=== PATIENT | female | born 1955 | race American Indian/Alaskan Native ===

== ENCOUNTER 2019-07-30 00:13 | Emergency (ER) | payer OTHER ==
[2019-07-30] MEDS ORDERED: KETOROLAC 30 MG/1 ML INJ IV ONE (01:36)
--- NOTE | 2019-07-30 01:40 | Emergency Department Report ---
<GRACIE CARRIZALES - Last Filed: 07/30/19 01:38> ED Abdominal Pain HPI - General Chief Complaint: Abdominal Pain Stated Complaint: ABD PAIN,ACID REFLUX WITH BURNING Time Seen by Provider: 07/30/19 01:23 Source: patient Mode of arrival: Ambulatory Limitations: No Limitations - History of Present Illness Initial Comments: Mrs. Saini is a 63-year-old female with history of hypertension, diverticulitis pulmonary embolism who presents with abdominal pain. On she felt as if she has stomach upset. Mostly discomfort and epigastric pain. She has belching and heartburn. Pepto-Bismol did provide mild transient relief. Now she has diffuse abdominal pain most prominently in epigastric region. She is concerned for another flare of acute diverticulitis. Moderate severe pain. She drove to the emergency department in her private auto. No history of abdominal surgeries. Past surgical history includes: Lung surgery for mass resection benign, neck surgery, MD Complaint: abdominal pain -: Gradual, days(s) (3) Location: diffuse, epigastric Migration to: no migration Severity: moderate Severity scale (0 -10): 7 Quality: cramping, aching Consistency: constant Improves With: medication (Pepto-Bismol) Worsens With: nothing Context: other (history of diverticulitis) Associated Symptoms: denies other symptoms (belching heartburn) - Related Data Home Medications Medication Instructions Recorded Confirmed Last Taken Lisinopril/Hydrochlorothiazide 1 tab PO QDAY 10/30/13 10/30/13 10/30/13 09:00 [Zestoretic 10-12.5 mg] Previous Rx's Medication Instructions Recorded Last Taken Type Warfarin [Coumadin] 5 mg PO QDAY #30 tablet 11/06/13 Unknown Rx diphenhydrAMINE [Benadryl] 25 mg PO Q6HR PRN #10 capsule 11/06/13 Unknown Rx Acetaminophen/Codeine [Tylenol 1 tab PO Q6H PRN #12 tab 07/30/19 Unknown Rx /Codeine # 3 tab] Apixaban [Eliquis starter pack] 5 mg PO BID #74 tab.ds.pk 07/30/19 Unknown Rx Famotidine [Pepcid] 20 mg PO BID #60 tablet 07/30/19 Unknown Rx Allergies Allergy/AdvReac Type Severity Reaction Status Date / Time No Known Allergies Allergy Verified 10/30/13 22:32 ED Review of Systems Comment: All other systems reviewed and negative Constitutional: denies: fever, malaise Cardiovascular: denies: chest pain Gastrointestinal: abdominal pain. denies: nausea, vomiting, diarrhea, constipation Musculoskeletal: denies: back pain ED Past Medical Hx - Past Medical History Previous Medical History?: Yes Hx Hypertension: Yes Hx Congestive Heart Failure: No Hx Diabetes: No Hx GERD: Yes Hx Asthma: No Hx COPD: No Additional medical history: Thyroid disease, PE, - Surgical History Past Surgical History?: Yes Additional Surgical History: neck surgery. back surgery. lap surgery for scar tissue - Family History Family history: hypertension - Social History Smoking Status: Former Smoker Substance Use Type: None - Medications Home Medications: Home Medications Medication Instructions Recorded Confirmed Last Taken Type Lisinopril/Hydrochlorothiazide 1 tab PO QDAY 10/30/13 10/30/13 10/30/13 09:00 History [Zestoretic 10-12.5 mg] Warfarin [Coumadin] 5 mg PO QDAY #30 tablet 11/06/13 Unknown Rx diphenhydrAMINE [Benadryl] 25 mg PO Q6HR PRN #10 capsule 11/06/13 Unknown Rx Acetaminophen/Codeine [Tylenol 1 tab PO Q6H PRN #12 tab 07/30/19 Unknown Rx /Codeine # 3 tab] Apixaban [Eliquis starter pack] 5 mg PO BID #74 tab.ds.pk 07/30/19 Unknown Rx Famotidine [Pepcid] 20 mg PO BID #60 tablet 07/30/19 Unknown Rx ED Physical Exam - General Limitations: No Limitations General appearance: alert, in no apparent distress - Head Head exam: Present: atraumatic, normocephalic - Eye Eye exam: Present: normal appearance - ENT ENT exam: Present: mucous membranes moist - Neck Neck exam: Present: normal inspection, full ROM - Respiratory Respiratory exam: Present: normal lung sounds bilaterally. Absent: respiratory distress, wheezes, rales, rhonchi - Cardiovascular Cardiovascular Exam: Present: regular rate, normal rhythm, normal heart sounds. Absent: systolic murmur, diastolic murmur, rubs, gallop - GI/Abdominal GI/Abdominal exam: Present: soft, normal bowel sounds. Absent: distended, tenderness, guarding, rebound - Extremities Exam Extremities exam: Present: normal inspection - Neurological Exam Neurological exam: Present: alert, oriented X3 - Psychiatric Psychiatric exam: Present: normal affect, normal mood - Skin Skin exam: Present: warm, dry, intact, normal color. Absent: rash ED Disposition Clinical Impression: Thrombus Abdominal pain Qualifiers: Abdominal location: epigastric Qualified Code(s): R10.13 - Epigastric pain Disposition: - TO HOME OR SELFCARE Condition: Stable Instructions: Abdominal Pain (ED), Deep Venous Thrombosis (ED) Prescriptions: Apixaban [Eliquis starter pack] 5 mg PO BID #74 tab.ds.pk Famotidine [Pepcid] 20 mg PO BID #60 tablet Acetaminophen/Codeine [Tylenol /Codeine # 3 tab] 1 tab PO Q6H PRN #12 tab PRN Reason: pain Referrals: [facility] [Provider Group] - 3-5 Days [facility] [Provider Group] - 3-5 Days <HILLARY FRAZIER - Last Filed: 07/30/19 05:10> ED Review of Systems ROS: Stated complaint: ABD PAIN,ACID REFLUX WITH BURNING Other details as noted in HPI ED Course Vital Signs 07/30/19 07/30/19 00:29 02:18 Temperature 98.6 F Pulse Rate 85 Respiratory 18 16 Rate Blood Pressure 145/79 O2 Sat by Pulse 94 Oximetry ED Medical Decision Making - Lab Data Result diagrams: 07/30/19 00:57 07/30/19 00:57 Labs 07/30/19 07/30/19 07/30/19 00:57 00:57 03:30 WBC 7.2 RBC 4.96 Hgb 14.3 Hct 44.1 H MCV 89 MCH 29 MCHC 33 RDW 13.4 Plt Count 210 Lymph % (Auto) 26.2 Worth % (Auto) 8.3 H Eos % (Auto) 3.6 Baso % (Auto) 1.1 Lymph # 1.9 Worth # 0.6 Eos # 0.3 Baso # 0.1 Seg Neutrophils % 60.8 Seg Neutrophils # 4.4 Sodium 139 Potassium 4.2 Chloride 99.1 Carbon Dioxide 23 Anion Gap 21 BUN 14 Creatinine 0.7 Estimated GFR > 60 BUN/Creatinine Ratio 20 Glucose 112 H Calcium 9.3 Total Bilirubin 0.30 AST 21 ALT 12 Alkaline Phosphatase 68 Total Protein 8.1 Albumin 3.9 Albumin/Globulin Ratio 0.9 Lipase > 335 H Urine Color Yellow Urine Turbidity Clear Urine pH 5.0 Ur Specific [place] 1.015 Urine Protein <15 mg/dl Urine Glucose (UA) Neg Urine Ketones Neg Urine Blood Sm Urine Nitrite Neg Urine Bilirubin Neg Urine Urobilinogen < 2.0 Ur Leukocyte Esterase Neg Urine WBC (Auto) 1.0 Urine RBC (Auto) 3.0 U Epithel Cells (Auto) 1.0 Urine Bacteria (Auto) 2+ Urine Mucus Few - Radiology Data Radiology results: report reviewed, image reviewed Referring Physician: GRACIE CARRIZALES Patient Name: JUAREZ SAINI Date of : 1955 Sex: Female Report Date: 2019-07-30 Report Status: Finalized Findings [facility] [address] [place] [address] Cat Scan Report Signed Patient: JUAREZ SAINI MR#: [id number] : 1955 Acct:[id number] Age/Sex: 63 / F ADM Date: 07/30/19 Loc: ED Attending Dr: Ordering Physician: Gracie Jett MD Date of Service: 07/30/19 Procedure(s): CT abdomen pelvis w con Accession Number(s): [id number] cc: Gracie Jett MD CT ABDOMEN AND PELVIS WITH IV CONTRAST INDICATION: Generalized abdominal pain. History of diverticulitis. TECHNIQUE: Following the administration of intravenous contrast, multiple axial CT images of the abdomen and pelvis were acquired. Sagittal and coronal reformats were obtained. All CT performed at this facility utilize dose reduction techniques including automated exposure control, iterative reconstruction and weight based dosing when appropriate to reduce patient rad iation dose to as low as reasonably achievable. COMPARISON: None FINDINGS: Limited imaging of the bilateral lung bases demonstrates no acute abnormality. Abdomen: There are several small hepatic cysts. The gallbladder, spleen, pancreas, bilateral adrenal glands and bilateral kidneys show no evidence of acute abnormality. There is a 2.7 cm cyst in the upper pole of the right kidney. There is intraluminal thrombus within the left gonadal vein extending for a length of approximately 5-6 cm. This does not appear to involve the left renal vein. There is no evidence of bowel obstruction, free fluid or free air. The appendix is visualized and appears normal. Pelvis: No free fluid is seen within the pelvis. The uterus and urinary bladder appear within normal limits. Bones and Soft Tissues: Evaluation of bony structures shows no evidence of no evidence of acute bony abnormality. Soft tissue structures show no focal soft tissue abnormality. IMPRESSION: 1. Left gonadal vein thrombosis which may be the source of patient's abdominal pain. 2. Small hepatic and right renal cyst. Signer Name: Fariba Tirado MD Signed: 07/30/2019 3:55 AM Workstation Name: [id number] Transcribed By: EB Dictated By: Fariba Tirado MD Electronically Authenticated By: Fariba Tirado MD Signed Date/Time: 07/30/19 0355 DD/ 0342 TD/TT: - Medical Decision Making Consulted [facility] vascular, Dr Ruiz, recommendation jessicais, follow up with hematology in 2-3 days , pt okfor discharge and outpt therapy , discussed tx plan with patient, pt verbalized agreement and understanding of same. pt dc'd to home in stable condition at this time. Critical care attestation.: If time is entered above; I have spent that time in minutes in the direct care of this critically ill patient, excluding procedure time. ED Disposition Is pt being admited?: No Does the pt Need Aspirin: No Time of Disposition: 05:09
[2019-07-30 02:08] LABS: Basophils # (Auto) 0.1 K/mm3 (0.0-0.1); Basophils % (Auto) 1.1 % (0.0-1.8); Eosinophils # (Auto) 0.3 K/mm3 (0.0-0.4); Eosinophils % (Auto) 3.6 % (0.0-4.3); Hematocrit 44.1 % (30.3-42.9); Hemoglobin 14.3 gm/dl (10.1-14.3); Lymphocytes # (Auto) 1.9 K/mm3 (1.2-5.4); Lymphocytes % (Auto) 26.2 % (13.4-35.0); Mean Corpuscular HGB Conc 33 % (30-34); Mean Corpuscular Volume 89 fl (79-97); Monocytes # (Auto) 0.6 K/mm3 (0.0-0.8); Monocytes % (Auto) 8.3 % (0.0-7.3); Red Blood Count 4.96 M/mm3 (3.65-5.03); Red Cell Distribution Width 13.4 % (13.2-15.2)
[2019-07-30 02:09] LABS: Platelet Count 210 K/mm3 (140-440)
[2019-07-30 02:33] LABS: Albumin 3.9 g/dL (3.9-5); BUN/Creatinine Ratio 20; Blood Urea Nitrogen 14 mg/dL (7-17); Calcium 9.3 mg/dL (8.4-10.2); Hemolysis Index 114
[2019-07-30 02:36] LABS: Alanine Aminotransferase 12 units/L (7-56)
[2019-07-30 03:52] LABS: Bacteria,Urine 2+ /HPF (Negative); Bilirubin,Urine NEG (Negative); Blood,Urine SM (Negative); Color,Urine Yellow (Yellow); Mucus,Urine FEW /HPF; Protein,Urine <15 mg/dL mg/dL (Negative); Urobilinogen,Urine < 2.0 mg/dL (<2.0)
--- NOTE | 2019-07-30 03:59 | Cat Scan Report ---
CT ABDOMEN AND PELVIS WITH IV CONTRAST INDICATION: Generalized abdominal pain. History of diverticulitis. TECHNIQUE: Following the administration of intravenous contrast, multiple axial CT images of the abdo men and pelvis were acquired. Sagittal and coronal reformats were obtained. All CT performed at this facility utilize dose reduction techniques including automated exposure control, iterative reconstru ction and weight based dosing when appropriate to reduce patient radiation dose to as low as reasonab ly achievable. COMPARISON: None FINDINGS: Limited imaging of the bilateral lung bases demonstrates no acute abnormality. Abdomen: There are several small hepatic cysts. The gallbladder, spleen, pancreas, bilateral adrenal glands and bilateral kidneys show no evidence of acute abnormality. There is a 2.7 cm cyst in the upp er pole of the right kidney. There is intraluminal thrombus within the left gonadal vein extending for a length of approximately 5 -6 cm. This does not appear to involve the left renal vein. There is no evidence of bowel obstruction , free fluid or free air. The appendix is visualized and appears normal. Pelvis: No free fluid is seen within the pelvis. The uterus and urinary bladder appear within normal limits. Bones and Soft Tissues: Evaluation of bony structures shows no evidence of no evidence of acute bony abnormality. Soft tissue structures show no focal soft tissue abnormality. IMPRESSION: 1. Left gonadal vein thrombosis which may be the source of patient's abdominal pain. 2. Small hepatic and right renal cyst. Signer Name: Fariba Tirado MD Signed: 07/30/2019 3:55 AM Workstation Name: [email or web address]
[2019-07-30] MEDS ORDERED: APIXABAN 5 MG TAB PO ONE (05:15)
[2019-07-30] MEDS ORDERED: FAMOTIDINE 20 MG TAB ONE (05:49)
[2019-07-30 05:50] VITALS: BP 139/86
[2019-07-30] MEDS ORDERED: FAMOTIDINE 20 MG TAB PO ONE (05:50)
== END 2019-07-30 06:01 | disposition home or self-care (01) ==
LOC: ED 00:13
DX: I82.890 Acute embolism and thrombosis of other specified veins (principal); R10.9 Unspecified abdominal pain; I10 Essential (primary) hypertension; K21.9 Gastro-esophageal reflux disease without esophagitis; E07.9 Disorder of thyroid, unspecified; Z98.890 Other specified postprocedural states; Z79.899 Other long term (current) drug therapy; Z87.891 Personal history of nicotine dependence
CPT/HCPCS: 36415; 74177; 80053; 81001; 83690; 85025; 96374; 99284; J1885; Q9967

== ENCOUNTER 2019-10-30 09:01 | Outpatient (CLI) | payer OTHER ==
[2019-10-30 10:02] LABS: Blood Urea Nitrogen 11 mg/dL (7-17)
--- NOTE | 2019-10-30 11:05 | Cat Scan Report ---
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 TECHNIQUE: Axial CT images were obtained through the abdomen and pelvis after 100 cc Omnipaque 300 milligrams pe rcent IV contrast. All CT scans at this location are performed using CT dose reduction for ALARA by means of automated exposure control. COMPARISON: 07/30/2019 CT abdomen pelvis FINDINGS: LOWER CHEST: Minimum parenchymal changes peripheral aspect lingular segment left upper lobe and perip heral aspect right middle lobe not significantly changed as compared to previous exam. Stable perifis sural lymph node on the left LIVER: No significant abnormality. GALLBLADDER: No significant abnormality. BILE DUCTS: No significant abnormality. PANCREAS: No significant abnormality. SPLEEN: No significant abnormality. ADRENALS: No significant abnormality. RIGHT KIDNEY and URETER: 3.24 cm right renal cyst LEFT KIDNEY and URETER: No significant abnormality. STOMACH and SMALL BOWEL: No significant abnormality. COLON: No significant abnormality. APPENDIX: No significant abnormality. PERITONEUM: No free fluid. No free air. No fluid collection. LYMPH NODES: No significant adenopathy. AORTA and ARTERIES: No significant abnormality. IVC and VEINS: No significant abnormality. URINARY BLADDER: No significant abnormality. REPRODUCTIVE ORGANS: No significant abnormality. ADDITIONAL FINDINGS: Persistent enlarged left lateral gonadal vein without obvious thrombus SKELETAL SYSTEM: No significant abnormality. IMPRESSION: 1. No significant abnormality. Please see comments Signer Name: Manish Mitchell MD Signed: 10/30/2019 11:00 AM Workstation Name: [id number]
== END 2019-10-30 09:02 | disposition home or self-care (01) ==
LOC: CT 09:01
PROVIDERS: ATTEND Radiology Diagnostic Radiology
DX: I83.813 Varicose veins of bilateral lower extremities with pain (principal)
CPT/HCPCS: 36415; 74177; 82565; 84520; Q9967

== ENCOUNTER 2021-09-21 17:49 | Emergency (ER) | payer OTHER ==
[2021-09-21 17:56] VITALS: BP 155/83
--- NOTE | 2021-09-21 18:03 | Event Note ---
ED Screening Note Date of service: 09/21/21 Time: 18:02 ED Screening Note: Patient presents with complaints of left-sided chest tightness and shortness of breath x4 days Patient has a history of PE and is currently on Eliquis She denies any recent long travel or leg pain/swelling She is vaccinated against COVID-19 and denies any loss of taste or smell She admits to fatigue This initial assessment/diagnostic orders/clinical plan/treatment(s) is/are subject to change based on patients health status, clinical progression and re- assessment by fellow clinical providers in the ED. Further treatment and workup at subsequent clinical providers discretion. Patient/guardian urged not to elope from the ED as their condition may be serious if not clinically assessed and managed. Initial orders include: Labs EKG Chest x-ray
--- NOTE | 2021-09-21 18:32 | XRay Report ---
XR chest routine 2V INDICATION / CLINICAL INFORMATION: chest pain. COMPARISON: 09/05/2019 FINDINGS: SUPPORT DEVICES: None. HEART /PULMONARY VASCULATURE: No significant abnormality. LUNGS / PLEURA: No significant pulmonary or pleural abnormality. No pneumothorax. ADDITIONAL FINDINGS: No significant additional findings. IMPRESSION: 1. No acute findings. Signer Name: Yuri Chowdhury MD Signed: 09/21/2021 6:28 PM Workstation Name: [id number]
[2021-09-21 18:48] LABS: Basophils % (Auto) 0.8 % (0.0-1.8); Eosinophils # (Auto) 0.2 K/mm3 (0.0-0.4); Eosinophils % (Auto) 3.6 % (0.0-4.3); Hematocrit 42.2 % (30.3-42.9); Hemoglobin 13.5 gm/dl (10.1-14.3); Lymphocytes # (Auto) 2.3 K/mm3 (1.2-5.4); Lymphocytes % (Auto) 36.3 % (13.4-35.0); Mean Corpuscular HGB Conc 32 % (30-34); Mean Corpuscular Volume 90 fl (79-97); Monocytes # (Auto) 0.6 K/mm3 (0.0-0.8); Monocytes % (Auto) 9.3 % (0.0-7.3); Platelet Count 244 K/mm3 (140-440); Red Blood Count 4.69 M/mm3 (3.65-5.03); Red Cell Distribution Width 13.3 % (13.2-15.2)
--- NOTE | 2021-09-21 18:55 | Emergency Department Report ---
ED Chest Pain HPI - General Chief Complaint: Chest Pain Stated Complaint: CP WITH SOB PUI?: No Time Seen by Provider: 09/21/21 18:00 Source: patient Mode of arrival: Ambulatory Limitations: No Limitations - History of Present Illness Initial Comments: Chief complaint: Chest tightness shortness of breath HPI: This 66-year-old female with history of DVT/PE on Eliquis, GERD, thyroid disease who presents with chest tightness shortness of breath for 4 days. She denies cough, fever, loss of taste or smell. She denies leg pain. She denies recent travel. Discomfort is mild. Central left chest in location. Pain is constant. Pain does not change with exertion inspiration. Pain persist at rest. Pain has been persistent for the last 4 days. Mrs. Saini has been compliant with Eliquis therapy Patient has had cardiac stress test several years ago in the [facility]. MD Complaint: chest pain -: Gradual, days(s) (4 days) Onset: during rest Pain Location: substernal, left chest Severity: mild Quality: tightness Consistency: constant Improves With: nothing Worsens With: nothing re: dyspnea Treatments Prior to Arrival: none - Related Data Home Medications Medication Instructions Recorded Confirmed Last Taken Lisinopril/Hydrochlorothiazide 1 tab PO QDAY 10/30/13 10/30/13 10/30/13 09:00 [Zestoretic 10-12.5 mg] Previous Rx's Medication Instructions Recorded Last Taken Type Warfarin [Coumadin] 5 mg PO QDAY #30 tablet 11/06/13 Unknown Rx diphenhydrAMINE [Benadryl] 25 mg PO Q6HR PRN #10 capsule 11/06/13 Unknown Rx Acetaminophen/Codeine [Tylenol 1 tab PO Q6H PRN #12 tab 07/30/19 Unknown Rx /Codeine # 3 tab] Apixaban [Eliquis starter pack] 5 mg PO BID #74 tab.ds.pk 07/30/19 Unknown Rx Famotidine [Pepcid] 20 mg PO BID #60 tablet 07/30/19 Unknown Rx Allergies Allergy/AdvReac Type Severity Reaction Status Date / Time No Known Allergies Allergy Verified 09/21/21 17:50 Heart Score - HEART Score History: Slightly suspicious EKG: Normal Age: 45-65 Risk factors: 1-2 risk factors Troponin: < normal limit HEART Score: 2 - EKG Read Time Time EKG Completed: 18:20 EKG Read Time: 18:20 - Critical Actions Critical Actions: 0-3 pts:0.9-1.7%risk of adverse cardiac event.Candidate for discharge ED Review of Systems ROS: Stated complaint: CP WITH SOB Other details as noted in HPI Comment: All other systems reviewed and negative Constitutional: denies: chills, fever, malaise Respiratory: shortness of breath. denies: cough Cardiovascular: chest pain Gastrointestinal: denies: abdominal pain, nausea, vomiting Musculoskeletal: denies: back pain ED Past Medical Hx - Past Medical History Previous Medical History?: Yes Hx Hypertension: Yes Hx Congestive Heart Failure: No Hx Diabetes: No Hx Deep Vein Thrombosis: Yes Hx GERD: Yes Hx Asthma: No Hx COPD: No Additional medical history: Thyroid disease, PE, - Surgical History Past Surgical History?: Yes Additional Surgical History: neck surgery. back surgery. lap surgery for scar tissue - Social History Smoking Status: Never Smoker Substance Use Type: None - Medications Home Medications: Home Medications Medication Instructions Recorded Confirmed Last Taken Type Lisinopril/Hydrochlorothiazide 1 tab PO QDAY 10/30/13 10/30/13 10/30/13 09:00 History [Zestoretic 10-12.5 mg] Warfarin [Coumadin] 5 mg PO QDAY #30 tablet 11/06/13 Unknown Rx diphenhydrAMINE [Benadryl] 25 mg PO Q6HR PRN #10 capsule 11/06/13 Unknown Rx Acetaminophen/Codeine [Tylenol 1 tab PO Q6H PRN #12 tab 07/30/19 Unknown Rx /Codeine # 3 tab] Apixaban [Eliquis starter pack] 5 mg PO BID #74 tab.ds.pk 07/30/19 Unknown Rx Famotidine [Pepcid] 20 mg PO BID #60 tablet 07/30/19 Unknown Rx ED Physical Exam - General Limitations: No Limitations General appearance: alert, in no apparent distress, other (Pleasant, no acute distress appears comfortable) - Head Head exam: Present: atraumatic, normocephalic - Eye Eye exam: Present: normal appearance - ENT ENT exam: Present: mucous membranes moist - Neck Neck exam: Present: normal inspection, full ROM - Respiratory Respiratory exam: Present: normal lung sounds bilaterally. Absent: respiratory distress, wheezes, rales, rhonchi - Cardiovascular Cardiovascular Exam: Present: regular rate, normal rhythm, normal heart sounds. Absent: systolic murmur, diastolic murmur, rubs, gallop - GI/Abdominal GI/Abdominal exam: Present: soft, normal bowel sounds. Absent: distended, tenderness, guarding, rebound - Extremities Exam Extremities exam: Present: normal inspection - Neurological Exam Neurological exam: Present: alert, oriented X3 - Psychiatric Psychiatric exam: Present: normal affect, normal mood - Skin Skin exam: Present: warm, dry, intact, normal color. Absent: rash ED Course Vital Signs 09/21/21 09/21/21 17:53 17:55 Temperature 98.6 F Pulse Rate 97 H Respiratory 20 Rate Blood Pressure 155/83 O2 Sat by Pulse 100 Oximetry ED Medical Decision Making - Lab Data Result diagrams: 09/21/21 18:33 09/21/21 18:33 - EKG Data -: EKG Interpreted by Mo EKG shows normal: sinus rhythm, axis, intervals, QRS complexes, ST-T waves Rate: normal - EKG Data Interpretation: normal EKG - Radiology Data Radiology results: report reviewed Patient Name: JUAREZ SANII Gender: Female Date of : 1955 Referring Provider: GIANNI MONGE Organization: [facility] Accession Number: [id number] Requested Date: September 21, 2021 18:01 Report Status: Final Requested Procedure: 1 Procedure Description: XR chest routine 2V Modality: XR Findings Reporting MD: Yuri Chowdhury Dictation Time: September 21, 2021 17:28 [employer] Grazier: Not available Level Vial Sealer Date: XR chest routine 2V INDICATION / CLINICAL INFORMATION: chest pain. COMPARISON: 09/05/2019 FINDINGS: SUPPORT DEVICES: None. HEART /PULMONARY VASCULATURE: No significant abnormality. LUNGS / PLEURA: No significant pulmonary or pleural abnormality. No pneumothorax. ADDITIONAL FINDINGS: No significant additional findings. IMPRESSION: 1. No acute findings. Signer Name: Yuri Chowdhury MD Signed: 09/21/2021 5:28 PM Workstation Name: [email or web address] [id number] - Medical Decision Making Atypical chest pain. No evidence of heart strain or ischemia on EKG. Normal EKG. No indication of pulmonary embolism clinically. Patient has been compliant with Eliquis anticoagulation. Differential diagnosis includes GERD chest wall pain. Chest radiograph negative for infiltrate or pneumothorax. Patient referred to exhibition specialist for outpatient restratification. I have faxed referral request form to [facility]. Patient also given name for a exhibition specialist to contact. CBC chemistry BNP within normal limits. Troponin negative. Heart score 2. Critical care attestation.: If time is entered above; I have spent that time in minutes in the direct care of this critically ill patient, excluding procedure time. ED Disposition Clinical Impression: GERD (gastroesophageal reflux disease), History of DVT (deep vein thrombosis), History of pulmonary embolism, Current use of machine long goods helper anticoagulation Disposition: 01 HOME / SELF CARE / HOMELESS Is pt being admited?: No Does the pt Need Aspirin: No Condition: Stable Instructions: Nonspecific Chest Pain, Adult, [id number] Referrals: CELSA WONG MD [Staff Physician] - 2-3 Days
[2021-09-21 19:12] LABS: Alanine Aminotransferase 12 units/L (7-56); Albumin 4.2 g/dL (3.9-5); Blood Urea Nitrogen 16 mg/dL (7-17); Calcium 9.4 mg/dL (8.4-10.2); Hemolysis Index 20
[2021-09-21 19:24] LABS: BUN/Creatinine Ratio 23
== END 2021-09-21 20:30 | disposition home or self-care (01) ==
LOC: ED 17:49
DX: K21.9 Gastro-esophageal reflux disease without esophagitis (principal); Z86.718 Personal history of other venous thrombosis and embolism; Z86.711 Personal history of pulmonary embolism; Z79.01 Long term (current) use of anticoagulants; I10 Essential (primary) hypertension
CPT/HCPCS: 36415; 71046; 80053; 83880; 84484; 85025; 93005; 99283

== ENCOUNTER 2022-05-20 20:28 | Emergency (ER) | payer SELFPAY ==
[2022-05-20 21:31] LABS: Basophils % (Auto) 0.7 % (0.0-1.8); Eosinophils # (Auto) 0.1 K/mm3 (0.0-0.4); Eosinophils % (Auto) 2.3 % (0.0-4.3); Hematocrit 40.3 % (30.3-42.9); Hemoglobin 13.4 gm/dl (10.1-14.3); Lymphocytes # (Auto) 2.5 K/mm3 (1.2-5.4); Lymphocytes % (Auto) 43.8 % (13.4-35.0); Mean Corpuscular HGB Conc 33 % (30-34); Mean Corpuscular Volume 89 fl (79-97); Monocytes # (Auto) 0.5 K/mm3 (0.0-0.8); Monocytes % (Auto) 8.3 % (0.0-7.3); Platelet Count 194 K/mm3 (140-440); Red Blood Count 4.55 M/mm3 (3.65-5.03); Red Cell Distribution Width 13.4 % (13.2-15.2)
[2022-05-20 21:39] LABS: Alanine Aminotransferase 12 units/L (7-56); Blood Urea Nitrogen 14 mg/dL (7-17); Calcium 9.4 mg/dL (8.4-10.2); Hemolysis Index 23
--- NOTE | 2022-05-20 21:39 | XRay Report ---
CHEST 2 VIEWS INDICATION / CLINICAL INFORMATION: CHEST PAIN. COMPARISON: 09/21/2021 FINDINGS: SUPPORT DEVICES: None. HEART / MEDIASTINUM: No significant abnormality. LUNGS / PLEURA: No significant pulmonary or pleural abnormality. No pneumothorax. ADDITIONAL FINDINGS: No significant additional findings. IMPRESSION: 1. No acute findings. Signer Name: Tariq Morales MD Signed: 05/20/2022 9:34 PM Workstation Name: [email or web address]
[2022-05-20 21:52] LABS: BUN/Creatinine Ratio 20
[2022-05-21 01:33] VITALS: BP 130/74
--- NOTE | 2022-05-21 13:23 | Electrocardiograph Report ---
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
== END 2022-05-21 04:30 | disposition left against medical advice (07) ==
LOC: ED 20:28
DX: R07.9 Chest pain, unspecified (principal); Z53.21 Procedure and treatment not carried out due to patient leaving prior to being seen by health care provider
CPT/HCPCS: 36415; 71046; 80053; 84484; 85025; 93005